=== PATIENT | male | born 1980 | race Caucasian/White ===

== ENCOUNTER 2022-11-24 18:38 | Inpatient (IN) | payer OTHER ==
[2022-11-24 19:12] VITALS: BMI 33.4
[2022-11-24] MEDS ORDERED: IBUPROFEN 600 MG TABLET (FP) PO PRN (19:53)
[2022-11-24] MEDS ORDERED: guaiFENesin 600 MG TABLET.ER (FP) PO PRN (19:53)
[2022-11-24] MEDS ORDERED: MAG HYDROX/AL HYDROX/SIMETH 30 ML UNIT-DOSE CUP PO PRN (19:53)
[2022-11-24] MEDS ORDERED: MAGNESIUM HYDROX 2400MG/30ML ORAL SUSPENSION 30 ML CUP PO PRN (19:53)
[2022-11-24] MEDS ORDERED: NICOTINE 10 MG CARTRIDGE (INHALER) IH PRN (19:53)
[2022-11-24] MEDS ORDERED: IBUPROFEN 400 MG TABLET (FP) PO PRN (19:53)
[2022-11-24] MEDS ORDERED: POLYETHYLENE GLYCOL (HEALTHYLAX) 3350 17 GM PACKET PO PRN (19:53)
[2022-11-24] MEDS ORDERED: BISMUTH SUBSALICYLATE 524 MG/30 ML PO PRN (19:53)
[2022-11-24] MEDS ORDERED: BENZONATATE 200 MG CAPSULE PO PRN (19:53)
[2022-11-24] MEDS ORDERED: NALOXONE HCL 0.4 MG/ML VIAL IM PRN (19:53)
[2022-11-24] MEDS ORDERED: DICYCLOMINE HCL 10 MG CAPSULE PO PRN (19:53)
[2022-11-24] MEDS ORDERED: NALOXONE HCL (KLOXXADO) 8 MG SPRAY NS PRN (19:53)
[2022-11-24] MEDS ORDERED: ACETAMINOPHEN 325 MG TABLET (FP) PO PRN (19:53)
[2022-11-24] MEDS ORDERED: diazePAM 5 MG TABLET ONE (20:23)
[2022-11-24] MEDS: diazePAM 5 MG TABLET PO PRN (20:25)
[2022-11-24] MEDS ORDERED: ONDANSETRON *ODT* 4 MG TABLET ONE (20:27)
[2022-11-24] MEDS: ONDANSETRON *ODT* 4 MG TABLET SL PRN (20:27)
[2022-11-24] MEDS: THIAMINE HCL 100 MG TABLET (FP) PO SCH (22:13)
[2022-11-24] MEDS: MELATONIN 5 MG TABLETS PO SCH (22:13)
[2022-11-24] MEDS: diazePAM 5 MG TABLET PO SCH (22:14)
[2022-11-24] MEDS: METHOCARBAMOL 500 MG TABLET PO PRN (22:17)
[2022-11-24] MEDS: hydrOXYzine PAMOATE 25 MG CAPSULE (FP) PO PRN (22:17)
[2022-11-25] MEDS: diazePAM 5 MG TABLET PO SCH ×4 (05:27→22:22)
[2022-11-25] MEDS: METHOCARBAMOL 500 MG TABLET PO PRN (05:29)
[2022-11-25] MEDS: PRENATAL VITAMINS W/ FOLIC ACID TABLET (FP) PO SCH (10:34)
[2022-11-25] MEDS: hydrOXYzine PAMOATE 25 MG CAPSULE (FP) PO PRN ×2 (10:34→22:21)
[2022-11-25] MEDS: FUROSEMIDE 40 MG TABLET (FP) PO SCH (10:34)
[2022-11-25] MEDS: PANTOPRAZOLE 40 MG TABLET PO SCH (10:34)
[2022-11-25] MEDS: SPIRONOLACTONE 25 MG TABLET PO SCH (10:35)
[2022-11-25] MEDS: diazePAM 5 MG TABLET PO PRN (12:33)
[2022-11-25 17:45] LABS: HEMOGLOBIN 12.8 GM/dL (11.7-16.9); MCH 30.2 pg (25.7-33.7); MCHC 34.5 g/dl (32.0-35.9); MEAN CELL VOLUME 87.7 fl (80-96); MEAN PLT VOLUME 7.7 fl (7.5-11.1); PLATELET COUNT 112 10^3/uL (134-434); RBC 4.22 M/mm3 (4.00-5.60); RDW 14.6 % (11.9-15.9); WHITE BLOOD COUNT 6.1 K/mm3 (4.0-10.0)
[2022-11-25] MEDS: LOPERAMIDE HCL 2 MG CAPSULE PO PRN (17:54)
[2022-11-25 18:00] LABS: POTASSIUM 3.9 mmol/L (3.5-5.1)
[2022-11-25 18:08] LABS: CALCIUM 9.7 mg/dL (8.5-10.1)
[2022-11-25 18:12] LABS: CREATININE 1.1 mg/dL (0.55-1.3)
[2022-11-25 18:14] LABS: TOT PROT 7.2 g/dl (6.4-8.2)
[2022-11-25] MEDS: MELATONIN 5 MG TABLETS PO SCH (22:17)
[2022-11-25] MEDS: THIAMINE HCL 100 MG TABLET (FP) PO SCH (22:17)
[2022-11-26] MEDS: diazePAM 5 MG TABLET PO SCH ×3 (05:29→22:02)
[2022-11-26] MEDS: ONDANSETRON *ODT* 4 MG TABLET SL PRN (09:04)
[2022-11-26] MEDS ORDERED: METOPROLOL TARTRATE 25 MG TABLET (FP) PO SCH (10:00)
[2022-11-26] MEDS: PRENATAL VITAMINS W/ FOLIC ACID TABLET (FP) PO SCH (10:12)
[2022-11-26] MEDS: FUROSEMIDE 40 MG TABLET (FP) PO SCH (10:12)
[2022-11-26] MEDS: PANTOPRAZOLE 40 MG TABLET PO SCH (10:12)
[2022-11-26] MEDS: SPIRONOLACTONE 25 MG TABLET PO SCH (10:13)
[2022-11-26] MEDS: FINASTERIDE 5 MG TABLET (FP) PO SCH (10:13)
[2022-11-26] MEDS: METOPROLOL TARTRATE 25 MG TABLET (FP) PO SCH ×2 (10:15→22:01)
[2022-11-26] MEDS: diazePAM 5 MG TABLET PO PRN ×2 (10:15→17:41)
[2022-11-26] MEDS: FERROUS SO4 325 MG TABLET (FP) PO SCH ×2 (10:27→22:00)
[2022-11-26] MEDS: GABAPENTIN 300 MG CAPSULE PO SCH ×2 (13:35→22:00)
[2022-11-26] MEDS: LOPERAMIDE HCL 2 MG CAPSULE PO PRN (14:30)
[2022-11-26] MEDS: MELATONIN 5 MG TABLETS PO SCH (21:59)
[2022-11-26] MEDS: THIAMINE HCL 100 MG TABLET (FP) PO SCH (22:00)
[2022-11-26] MEDS: hydrOXYzine PAMOATE 25 MG CAPSULE (FP) PO PRN (22:04)
[2022-11-27] MEDS: diazePAM 5 MG TABLET PO SCH ×2 (05:43→17:36)
[2022-11-27] MEDS: GABAPENTIN 300 MG CAPSULE PO SCH ×3 (05:43→22:24)
[2022-11-27] MEDS: METHOCARBAMOL 500 MG TABLET PO PRN (05:44)
[2022-11-27] MEDS: diazePAM 5 MG TABLET PO PRN (09:47)
[2022-11-27] MEDS: SPIRONOLACTONE 25 MG TABLET PO SCH (09:48)
[2022-11-27] MEDS: METOPROLOL TARTRATE 25 MG TABLET (FP) PO SCH ×2 (09:48→22:24)
[2022-11-27] MEDS: FUROSEMIDE 40 MG TABLET (FP) PO SCH (09:48)
[2022-11-27] MEDS: FERROUS SO4 325 MG TABLET (FP) PO SCH ×2 (09:48→22:24)
[2022-11-27] MEDS: PANTOPRAZOLE 40 MG TABLET PO SCH (09:48)
[2022-11-27] MEDS: FINASTERIDE 5 MG TABLET (FP) PO SCH (09:49)
[2022-11-27] MEDS: PRENATAL VITAMINS W/ FOLIC ACID TABLET (FP) PO SCH (09:49)
[2022-11-27] MEDS ORDERED: ESCITALOPRAM OXALATE 10 MG TABLET PO SCH (10:00)
[2022-11-27] MEDS: BENZOCAINE/MENTHOL (CHLORASEPTIC ) LOZENGE MM PRN (10:25)
[2022-11-27 11:49] LABS: POTASSIUM 3.7 mmol/L (3.5-5.1)
[2022-11-27 11:51] LABS: CALCIUM 9.2 mg/dL (8.5-10.1)
[2022-11-27 11:52] LABS: BLOOD UREA NITROGEN 14.1 mg/dL (7-18)
[2022-11-27 11:55] LABS: CREATININE 0.9 mg/dL (0.55-1.3)
[2022-11-27] MEDS ORDERED: BACLOFEN 10 MG TABLET (FP) PO SCH (13:00)
[2022-11-27] MEDS: NAPROXEN 500 MG TABLET PO SCH ×2 (13:39→22:24)
[2022-11-27] MEDS: guaiFENesin 600 MG TABLET.ER (FP) PO SCH ×2 (13:40→22:24)
[2022-11-27] MEDS: THIAMINE HCL 100 MG TABLET (FP) PO SCH (22:24)
[2022-11-27] MEDS: hydrOXYzine PAMOATE 25 MG CAPSULE (FP) PO PRN (22:24)
[2022-11-27] MEDS: MELATONIN 5 MG TABLETS PO SCH (22:24)
[2022-11-28] MEDS: GABAPENTIN 300 MG CAPSULE PO SCH (05:53)
[2022-11-28] MEDS: hydrOXYzine PAMOATE 25 MG CAPSULE (FP) PO PRN (05:55)
[2022-11-28] MEDS: BENZOCAINE/MENTHOL (CHLORASEPTIC ) LOZENGE MM PRN (05:57)
[2022-11-28] MEDS ORDERED: diazePAM 5 MG TABLET PO ONE (06:00)
[2022-11-28 06:22] VITALS: RESP 16
[2022-11-28 09:10] VITALS: BP 109/75; PULSE 78; TEMP 98.2
== END 2022-11-28 09:05 | disposition home or self-care (01) | DRG 775 ==
LOC: YASAS 18:38 → Y3N 21:03
PROVIDERS: ADMIT Allergy & Immunology; ATTEND Surgery
PROC: HZ2ZZZZ Detoxification Services for Substance Abuse Treatment (ICD-10-PCS; principal; 2022-11-24)
DX: F10.230 Alcohol dependence with withdrawal, uncomplicated (principal); F19.24 Other psychoactive substance dependence with psychoactive substance-induced mood disorder; F32.A Depression, unspecified; G62.9 Polyneuropathy, unspecified; K21.9 Gastro-esophageal reflux disease without esophagitis; M54.50 Low back pain, unspecified; G89.29 Other chronic pain; Z86.79 Personal history of other diseases of the circulatory system; Z86.59 Personal history of other mental and behavioral disorders; R73.9 Hyperglycemia, unspecified; Z74.8 Other problems related to care provider dependency; Z28.310 Unvaccinated for COVID-19; Z28.9 Immunization not carried out for unspecified reason
CPT/HCPCS: 36415; 80048; 80053; 82947; 82962; 83036; 84075; 84450; 85027; 86780; C9803-CS; J0475; Q0162; U0003; U0005